=== PATIENT | female | born 1985 | race Caucasian/White ===

== ENCOUNTER 2016-08-07 19:03 | Emergency (ER) | payer OTHER ==
[~2016-08-07] VITALS: Ht 170.2 cm; Wt 100.0 kg
[2016-08-07 19:05] VITALS: BP 159/88; PULSE 95; RESP 15; TEMP 98; O2SAT 98
--- NOTE | 2016-08-07 20:13 | PD ---
HPI Chief Complaint: Nurse Leader Problem/Complaint Time Seen by Provider: 19:48 Travel History International Travel<30 days: No Contact w/Intl Traveler<30days: No Traveled to known affect area: No History of Present Illness HPI 30-year-old female 2 para 2 who arrives with vaginal bleeding for 3 weeks well by 4 day intervals no bleeding with the return of bleeding today. She also complains of bloating. She reports using about 10 pads per day. She denies abnormal vaginal discharge. Typically menstruation is normal. She does not believe she is . 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 No nausea vomiting diarrhea. No fever. She denies tobaccoism/alcohol abuse. No past medical history otherwise. She denies history of drug allergy. [facility] Past Medical History Tetanus Vaccination: Unknown Influenza Vaccination: No ?: Unknown LMP: IRREG NOW Social History Alcohol Use: No Tobacco Use: No Substance Use: No Allergies-Medications (Allergen,Severity, Reaction): Coded Allergies: No Known Allergies (Verified , 08/07/16) Reported Meds & Prescriptions Reported Meds & Active Scripts Active No Active Prescriptions or Reported Medications Review of Systems Except as stated in HPI: all other systems reviewed are Neg Physical Exam Narrative GENERAL: An 30-year-old female pleasant distress SKIN: Warm and dry. HEAD: Atraumatic. Normocephalic. EYES: Pupils equal and round. No scleral icterus. No injection or drainage. ENT: No nasal bleeding or discharge. Mucous membranes pink and moist. NECK: Trachea midline. No JVD. CARDIOVASCULAR: Regular rate and rhythm. No murmur appreciated. RESPIRATORY: No accessory muscle use. Clear to auscultation. Breath sounds equal bilaterally. GASTROINTESTINAL: Abdomen soft, nondistended. Minimal suprapubic tenderness to deep palpation. MUSCULOSKELETAL: No obvious deformities. No clubbing. No cyanosis. No edema. NEUROLOGICAL: Awake and alert. No obvious cranial nerve deficits. Motor grossly within normal limits. Normal speech. PSYCHIATRIC: Appropriate mood and affect; insight and judgment normal. Data Data Last Documented VS Vital Signs Date Time Temp Pulse Resp B/P Pulse Ox O2 Delivery O2 Flow Rate FiO2 08/07/16 19:05 98.0 95 15 159/88 98 Room Air Orders Complete Blood Count With Diff (08/07/16 20:07) Basic Metabolic Panel (Bmp) (08/07/16 20:07) Urinalysis - C+S If Indicated (08/07/16 20:07) Acetamin-Hydrocod 325-5 Mg (Webster 5-325 (08/07/16 20:15) Ondansetron Inj (Zofran Inj) (08/07/16 20:15) Ed Urine Pregnancytest Poc (08/07/16 20:07) Us Pelvis Comp W Dop Transvag (08/07/16 20:35) Labs Laboratory Tests Test 08/07/16 20:25 White Blood Count 12.3 TH/MM3 Red Blood Count 3.85 MIL/MM3 Hemoglobin 11.5 GM/DL Hematocrit 33.7 % Mean Corpuscular Volume 87.7 FL Mean Corpuscular Hemoglobin 29.8 PG Mean Corpuscular Hemoglobin 34.0 % Concent Red Cell Distribution Width 12.6 % Platelet Count 319 TH/MM3 Mean Platelet Volume 7.4 FL Neutrophils (%) (Auto) 67.6 % Lymphocytes (%) (Auto) 24.8 % Monocytes (%) (Auto) 6.1 % Eosinophils (%) (Auto) 1.2 % Basophils (%) (Auto) 0.3 % Neutrophils # (Auto) 8.3 TH/MM3 Lymphocytes # (Auto) 3.1 TH/MM3 Monocytes # (Auto) 0.7 TH/MM3 Eosinophils # (Auto) 0.2 TH/MM3 Basophils # (Auto) 0.0 TH/MM3 CBC Comment DIFF FINAL Differential Comment Urine Color YELLOW Urine Turbidity CLEAR Urine pH 7.0 Urine Specific Carey 1.021 Urine Protein TRACE mg/dL Urine Glucose (UA) NEG mg/dL Urine Ketones NEG mg/dL Urine Occult Blood MOD Urine Nitrite NEG Urine Bilirubin NEG Urine Urobilinogen LESS THAN 2.0 MG/DL Urine Leukocyte Esterase NEG Urine RBC 36 /hpf Urine WBC 1 /hpf Urine Squamous Epithelial 1 /hpf Cells Urine Bacteria RARE /hpf Microscopic Urinalysis Comment CULT NOT INDICATED Sodium Level 138 MEQ/L Potassium Level 3.6 MEQ/L Chloride Level 104 MEQ/L Carbon Dioxide Level 27.7 MEQ/L Anion Gap 6 MEQ/L Blood Urea Nitrogen 14 MG/DL Creatinine 0.71 MG/DL Estimat Glomerular Filtration 96 ML/MIN Rate Random Glucose 98 MG/DL Calcium Level 8.7 MG/DL MDM Medical Decision Making Medical Screen Exam Complete: Yes Emergency Medical Condition: Yes Medical Record Reviewed: Yes Differential Diagnosis IUP, UTI, ectopic , ov torsion, appendicitis, TOA, cervicitis, BV, Trichomoniasis, ov cyst, hernia, mittelschmerz, pain from menstruation Narrative Course CBC & BMP Diagram 08/07/16 20:25 UA: hematuria Last 24 hours Impressions Abdomen/Pelvis/Transvag US 08/07/[id number] Signed Impressions: Service Date/Time: Sunday, August 07, 2016 21:26 - CONCLUSION: 1. Simple cysts right ovary measures 5.2 cm. Followup pelvic sonogram 4 weeks and 2. Minimal fluid in the endometrial canal. 3. Normal flow to the ovaries. Selwyn Alexander MD The patient is resting comfortably and feels better, is alert and in no distress. The patients results and examination findings were discussed. The repeat examination is unremarkable and benign. The history, exam, diagnostic testing, and current condition do not suggest any significant pathology to warrant further testing, continued ED treatment, admission, or surgical evaluation at this point. The vital signs have been stable. The patient does not have uncontrollable pain, intractable vomiting, or other significant symptoms. The patient's condition is stable and appropriate for discharge. The patient will pursue further outpatient evaluation with a primary care physician or other designated or consulting physician as indicated in the discharge instructions. The patient expressed understanding and was agreeable with this plan. Diagnosis Primary Impression: DUB (dysfunctional uterine bleeding) Additional Impression: Right ovarian cyst Referrals: Zofia Win MD 2 days Additional Instructions: You have a choice when it comes to health care, and we are glad that you chose [facility]. Hopefully, we have met your expectations on today's visit. You are welcome to return to [facility] at any time, as we are committed to meeting the health care needs of our community. Med/Other Pt SpecificInfo: No Change to Meds Scripts No Active Prescriptions or Reported Meds Disposition: DISCHARGE HOME Condition: Rick Blackwell MD Aug 07, 2016 20:13
[2016-08-07] MEDS ORDERED: ACETAMINOPHEN/HYDROcodone 325 MG/5 MG TAB PO ONE (20:15)
[2016-08-07] MEDS ORDERED: ONDANSETRON HCL 4 MG/2 ML VIAL IM ONE (20:15)
[2016-08-07 21:25] LABS: AUTOMATED NEUTROPHIL # 8.3 TH/MM3 (1.8-7.7); BASOPHIL % 0.3 % (0.0-2.0); EOSINOPHIL # 0.2 TH/MM3 (0-0.4); EOSINOPHIL % 1.2 % (0.0-4.0); HEMATOCRIT 33.7 % (35.0-46.0); HEMO FLAGS DIFF FINAL; LYMPH % 24.8 % (9.0-44.0); LYMPHOCYTE # 3.1 TH/MM3 (1.0-4.8); MEAN CELL VOLUME 87.7 FL (80.0-100.0); MEAN CORPUSCULAR HEMOGLOBIN 29.8 PG (27.0-34.0); MONO % 6.1 % (0.0-8.0); NEUT % 67.6 % (16.0-70.0); PLATELET COUNT 319 TH/MM3 (150-450); RED BLOOD COUNT 3.85 MIL/MM3 (4.00-5.30); RED CELL DISTRIBUTION WIDTH 12.6 % (11.6-17.2); WHITE BLOOD COUNT 12.3 TH/MM3 (4.0-11.0)
[2016-08-07 21:41] LABS: BACTERIA, URINE RARE /hpf; BLOOD, URINE MOD (NEG); COMMENT (UR) CULT NOT INDICATED; CULTURE IF INDICATED CULT NOT INDICATED; GLUCOSE,URINE NEG (NEG); KETONE, URINE NEG (NEG); NITRITE,URINE NEG (NEG); SQUAMOUS EPITHELIAL CELL URINE 1 /hpf (0-5); URINE COLOR YELLOW (YELLW/STRAW)
[2016-08-07 21:48] LABS: BICARBONATE 27.7 MEQ/L (21.0-32.0); POTASSIUM 3.6 MEQ/L (3.5-5.1)
--- NOTE | 2016-08-07 22:22 | RADRPT ---
EXAM DATE/TIME: 08/07/2016 21:26 [facility] COMPARISON: No previous studies available for comparison. INDICATIONS : Pain. MEDICAL HISTORY : Irregular menses. SURGICAL HISTORY : Teratoma removed from left ovary. ENCOUNTER: Initial ACUITY: 3 weeks PAIN SCORE: 7/10 LOCATION: Bilateral pelvis MEASUREMENTS: UTERUS: 8.3 x 5.6 x 4.9 cm ENDOMETRIAL STRIPE: >20 mm RIGHT OVARY: 6.3 x 5.1 x 4.1 cm LEFT OVARY: 1.7 x 1.8 x 1.1 cm FINDINGS: UTERUS: The myometrium has homogeneous echotexture without mass. Minimal fluid in the endometrial canal. RIGHT OVARY: Simple cyst measures 5.2 x 4.7 x 3.6 cm. Normal flow right ovary. LEFT OVARY: Ovary contains no mass or significant cystic lesion. Normal flow left ovary. MISCELLANEOUS: No free fluid. CONCLUSION: 1. Simple cysts right ovary measures 5.2 cm. Followup pelvic sonogram 4 weeks and 2. Minimal fluid in the endometrial canal. 3. Normal flow to the ovaries. Selwyn Alexander MD on August 07, 2016 at 22:18 Board Certified Radiologist. This report was verified electronically.
== END 2016-08-07 22:44 | disposition home or self-care (01) ==
LOC: NEPE 19:03
DX: N93.8 Other specified abnormal uterine and vaginal bleeding (principal); N83.201 Unspecified ovarian cyst, right side
CPT/HCPCS: 76830; 76856; 80048; 81001; 84703; 85025; 93975; 96372; 99284; J2405